=== PATIENT | female | born 1990 | race Caucasian/White ===

== ENCOUNTER 2023-07-25 13:30 | Emergency (ER) | payer SELFPAY ==
[~2023-07-25] VITALS: Ht 170.2 cm; Wt 122.0 kg
[2023-07-25 13:37] VITALS: BP 132/97; PULSE 83; RESP 16; TEMP 98.2; O2SAT 95
== END 2023-07-25 18:49 | disposition left against medical advice (07) ==
LOC: ER 13:30
DX: R53.1 Weakness (principal); F15.90 Other stimulant use, unspecified, uncomplicated
CPT/HCPCS: 99283